=== PATIENT | female | born 1985 | race Two or more races ===

== ENCOUNTER 2024-11-18 16:52 | Emergency (ER) | payer MEDICAID, SELFPAY ==
[2024-11-18 17:30] VITALS: BP 159/92; PULSE 70; RESP 18; TEMP 37.5; O2SAT 98; BMI 41.8
--- NOTE | 2024-11-18 17:38 | PD.EDRME ---
Rapid Medical Screening Exam RME Arrival date/time: 11/18/24 16:52 This is a 39-year-old female that is currently on her menstrual cycle and complains of lower abdominal pain. Patient states that she feels like her abdomen is swollen. Patient complains of some urinary symptoms. Patient denies any past medical history. I have greeted and performed a focused initial assessment of this patient. Initial appropriate labs ordered at this time. A comprehensive ED assessment and evaluation of the patient and analysis of all test and completion of medical decision making process will be conducted by additional ED provider. Chief Complaint: Abdominal Pain Time Seen by Provider: 11/18/24 17:23 Vital signs: Vital Signs Temperature 99.5 F 11/18/24 17:30 Pulse Rate 70 11/18/24 17:30 Respiratory Rate 18 11/18/24 17:30 Blood Pressure 159/92 H 11/18/24 17:30 Pulse Oximetry (%) 98 11/18/24 17:30 Oxygen Delivery Method Room Air 11/18/24 17:30
[2024-11-18 18:20] LABS: Basophils # (Auto) 0.1 Thou/mm3 (0.0-0.2); Basophils % (Auto) 0 % (0-2.5); Eosinophils # (Auto) 0.3 Thou/mm3 (0.0-0.5); Eosinophils % (Auto) 3 % (0-10); Hematocrit 41.4 % (36.0-46.0); Hemoglobin 13.8 g/dL (12.0-16.0); Immature Granulocytes % (Auto) 0 % (0-0); Immature Granulocytes Auto 0.02 Thou/mm3 (0.00-0.00); Lymphocytes # (Auto) 3.6 Thou/mm3 (1.0-4.8); Lymphocytes % (Auto) 31 % (10-50); Mean Corpuscular HGB Conc 33.3 g/dl (31.0-37.0); Mean Corpuscular Hemoglobin 30.6 pg (25.0-35.0); Mean Corpuscular Volume 92 fL (80-100); Monocytes # (Auto) 0.7 Thou/mm3 (0.0-0.8); Monocytes % (Auto) 6 % (0-12); Neutrophils # (Auto) 6.7 Thou/mm3 (1.8-7.7); Neutrophils % (Auto) 59 % (37-80); Nucleated Red Blood Cell % 0 /100 WBC (0); Platelet Count 280 Thou/mm3 (140-440); RDW Standard Deviation 43.3 fL (36.4-46.3); Red Blood Count 4.51 Miln/mm3 (4.00-5.20); White Blood Count 11.3 Thou/mm3 (3.6-11.0)
[2024-11-18 18:48] LABS: Alanine Aminotransferase 9 U/L (10-49); Albumin/Globulin Ratio 1.5 (1.2-2.2); Alkaline Phosphatase 80 U/L (46-116); Anion Gap 5 (7-16); Aspartate Amino Transferase 13 U/L (0-34); BUN/Creatinine Ratio 14 Ratio (12-20); Bilirubin,Total 0.3 mg/dL (0.3-1.2); Blood Urea Nitrogen 11 mg/dL (9-23); Carbon Dioxide 26.9 mMol/L (20.0-31.0); Chloride 109 mMol/L (98-107); Creatinine (Component) 0.8 mg/dL (0.6-1.3); Estimated Creatinine Clearance 138.4 mL/min (>60); Globulin 2.7 gm/dL (2.3-3.5); Glucose 96 mg/dL (74-106); Lipase 60 U/L (12-53); Osmolality,Calculated 280 (275-295); Sodium 141 mMol/L (136-145); Total Protein 6.7 gm/dL (5.7-8.2); eGFR > 60 See Note
[2024-11-18 19:15] LABS: Collection Type, Urine Voided; WBC,Urine 0 /hpf (0-5)
[2024-11-18 19:32] LABS: Bilirubin,Urine Negative (Negative); Blood,Urine 3+ (Negative); Clarity,Urine Turbid (Clear/Hazy); Color,Urine Colorless (Lt Yel-Yel); Culture Indicated,Urine Not Indicated; Glucose, Urine Negative (Negative); Ketones,Urine Negative (Negative); Leukocyte Esterase,Urine Negative (Negative); Nitrite,Urine Negative (Negative); PH,Urine 5.5 (5.0-7.0); Protein,Urine Trace (Neg - Trace); RBC,Urine 1186 /hpf (0-3); Specific Gravity,Urine 1.016 (1.001-1.035); Squamous Epithelial Cell,Urine 1 /hpf (0-5); Urobilinogen,Urine Negative mg/dL (0.0-1.0)
--- NOTE | 2024-11-18 19:37 | XR_ITS ---
Examination: CT abdomen and pelvis without contrast. Coronal 3-D reconstructions. Sagittal 2-D reconstructions. Date and time of exam:November 18, 2024 0847 hrs. Indications: Bilateral lower abdominal pain and flank pain beginning 2 weeks ago CTDI: vol (mGy): 18.6 DLP: (mGycm): 1112 Technique: Axial images of the abdomen have been obtained, 3 mm slice thickness Intravenous contrast material has not been administered. Low dose protocols were performed. One or more of the following dose reduction techniques were used; automated exposure control, adjustment of the mA and/or KV according to patient size, use of iterative reconstruction technique. Findings: No focal liver or splenic lesions Contracted gallbladder No pancreatic mass Bilateral fat-containing adrenal nodules, 30 mm on the left 14 mm on the right Aorta normal size No renal or ureteral calculi, no hydronephrosis 8mm fat-containing umbilical hernia No pericecal inflammatory change Colonic diverticulosis, no diverticulitis No pelvic mass Urinary bladder intact Impression: No renal or ureteral calculi, no hydronephrosis Bilateral benign appearing fat-containing adrenal nodules No CT findings of appendicitis bowel obstruction or diverticulitis
[2024-11-18 20:19] LABS: HCG,Qualitative Serum Negative
[2024-11-18 21:27] LABS: Amphetamine/Methamp Scrn,U Negative (Negative); Barbiturate Screen,Urine Negative (Negative); Benzodiazepines Screen,Urine Negative (Negative); Benzoylecgonine Screen, Ur Negative (Negative); Fentanyl Screen,Urine Negative (Negative); Opiate Screen,Urine Negative (Negative); THC Screen,Urine Positive (Negative)
--- NOTE | 2024-11-19 04:28 | PD.EDABDPN ---
ED Abdominal Pain RME/HPI General Chief Complaint: Abdominal Pain Stated complaint: ABD PAIN X FEW WEEKS Time seen by provider: 11/18/24 17:23 Arrival date/time: 11/18/24 16:52 RME / HPI RME / HPI narrative: 11/18/24 16:52 This is a 39-year-old female that is currently on her menstrual cycle and complains of lower abdominal pain. Patient states that she feels like her abdomen is swollen. Patient complains of some urinary symptoms. Patient denies any past medical history. I have greeted and performed a focused initial assessment of this patient. Initial appropriate labs ordered at this time. A comprehensive ED assessment and evaluation of the patient and analysis of all test and completion of medical decision making process will be conducted by additional ED provider. This section includes all my notes and documentations, including HPI, PE, and ED course. Manjit Peck MD HPI: 39-year-old female here to be evaluated with abdominal pain since falling 1-2 weeks ago at work. She has trouble localizing her pain. No nausea or vomiting. No fever or chills. Eating normally. No urinary symptoms. No other complaints. ROS: All negative except as documented in HPI. Physical Exam: General: Alert and oriented. No acute distress when remaining still. Eyes: Conjunctivae and lids clear. ENT: No nasal congestion. Neck: Supple. Heart: RRR. Lungs: No respiratory distress. Good air movement. No rhonchi, wheezing, rales. Abdomen: Soft with equivocal tenderness, difficult to localize. Normal bowel sounds. No distension. No rebound or guarding. Back: No CVA tenderness. Skin: Warm and dry. Neuro: Alert and oriented X 3. I reviewed all diagnostic test results. My review of the abdominal CT report is no acute findings. Blood tests and urine tests unremarkable. At this point, diagnoses include abdominal wall pain. Recommended supportive care. Based on my best medical judgment, made decision no further evaluation or treatment indicated at this time. Patient understands and agrees to the discharge instructions customized and printed, see below. Discharge Instructions from Dr. Peck printed for you: 1. After extensive evaluation, there is no abdominal emergency such as appendicitis needing urgent surgery. The pain is probably originating from the abdominal wall and not from internal organ, especially with your recent injury. 2. Tylenol with codeine for severe pain. 3. See your doctor on 11/20/2024 for recheck and further care. Ask to review all test results and official radiology reports, to make sure you receive all necessary follow-ups and monitoring. To make sure there is no serious intra-abdominal condition, ask for help with more investigation not available here in the ER. Such as EGD or scoping the stomach, colonoscopy or scoping the colon, and referral to see catalytic converter operator helper. 4. Seek immediate medical care with worsening or with any concerns. Manjit Peck MD Related Data Previous Rx's ?Medication ?Instructions ?Recorded sulfamethoxazole 800 1 tab PO Q12H #20 tabs 10/25/22 mg-trimethoprim 160 mg tablet (Bactrim DS) acetaminophen 300 mg-codeine 30 mg 2 tab PO TID PRN pain #20 tabs 11/18/24 tablet Allergies Allergy/AdvReac Type Severity Reaction Status Date / Time No Known Allergies Allergy Verified 11/18/24 16:56 Course Quality Measures none Orders Category Date Time Status CT abdomen pelvis wo con Stat Exams 11/18/24 19:37 Completed CBC Stat Lab 11/18/24 18:08 Completed Comprehensive Metabolic Panel Stat Lab 11/18/24 18:08 Completed Drug Screen,Urine Stat Lab 11/18/24 18:38 Completed HCG,Qualitative Serum Stat Lab 11/18/24 18:08 Completed Lipase Stat Lab 11/18/24 18:08 Completed Urinalysis, C/S if Indicated Stat Lab 11/18/24 18:38 Completed Vital Signs Vital signs: Vital Signs Temperature 99.5 F 11/18/24 17:30 Pulse Rate 70 11/18/24 17:30 Respiratory Rate 18 11/18/24 17:30 Blood Pressure 159/92 H 11/18/24 17:30 Pulse Oximetry (%) 98 11/18/24 17:30 Oxygen Delivery Method Room Air 11/18/24 17:30 Abdominal Pain MDM Patient data External records reviewed:: [facility] previous records Clinical information provided by:: patient Social determinants that could affect healthcare access:: none Patient has the following chronic illnesses:: None How is presenting disease/condition affected by chronic disease/condition?: no chronic disease Evaluation data The following diagnostics were reviewed and interpreted by me:: lab results and radiology exam(s) Lab and/or radiology exams considered but not ordered:: None Interpretation Summary: Normal diagnostics Medications / Prescriptions Medications or Prescriptions considered but not ordered:: None Medication administrations:: None Consultations Consultation(s) initiated? (list below): No Diagnosis Differential diagnosis abdominal pain: abdominal pain, acute appendicitis, calculus of kidney, constipation, diverticulitis, endometriosis, gastroenteritis, pancreatitis and small bowel obstruction Most likely diagnosis given after review of the tests above:: Abdominal wall pain Admission Indicated Admission indicated?: not indicated Explain why admission is indicated or not indicated:: No criteria for admission Admission Request Was there a request for admission?: No Disposition Plan Disposition Plan: other (specify) Discharge Plan Plan Patient Disposition: HOME (Self Care) Prescriptions/Referrals Prescriptions/Med Rec: New acetaminophen-codeine 300-30 mg tablet 2 tab PO TID MDD 6 PRN (Reason: pain) Qty: 20 0RF No Action sulfamethoxazole-trimethoprim [Bactrim DS] 800-160 mg tablet 1 tab PO Q12H Qty: 20 0RF Referrals: Danny Tony PA-C [Primary Care Provider] - In 1 week Problem List Clinical Impression: Abdominal wall pain Patient/Caregiver Discharge Instructions Discharge Activity: activity as tolerated Education Materials: ED Abdominal Pain Unkn Cause Fem Additional Instructions: Discharge Instructions from Dr. Peck printed for you: 1. After extensive evaluation, there is no abdominal emergency such as appendicitis needing urgent surgery. The pain is probably originating from the abdominal wall and not from internal organ, especially with your recent injury. 2. Tylenol with codeine for severe pain. 3. See your doctor on 11/20/2024 for recheck and further care. Ask to review all test results and official radiology reports, to make sure you receive all necessary follow-ups and monitoring. To make sure there is no serious intra-abdominal condition, ask for help with more investigation not available here in the ER. Such as EGD or scoping the stomach, colonoscopy or scoping the colon, and referral to see catalytic converter operator helper. 4. Seek immediate medical care with worsening or with any concerns. Print Language: Belgian Stand Alone Forms: Gabriella Award Info., Patient Portal Info Letter
== END 2024-11-18 22:16 | disposition home or self-care (01) ==
PROVIDERS: Nurse Practitioner Family; Emergency Provider Emergency Medicine; PCP Family Medicine
DX: R10.30 Lower abdominal pain, unspecified (principal)
CPT/HCPCS: 36415; 74176; 80053; 80307; 81001; 81025; 83690; 84703; 85025; 99284

== ENCOUNTER 2025-08-01 11:23 | Emergency (ER) | payer MEDICAID, SELFPAY ==
[2025-08-01 11:24] VITALS: BMI 43.5
[2025-08-01 11:43] VITALS: BP 130/86; PULSE 87; RESP 18; TEMP 36.9; O2SAT 98
--- NOTE | 2025-08-01 11:50 | PD.EDADULT ---
ED General RME/HPI General Chief complaint: General Adult/Misc Complain Stated complaint: GENERALIZED SWELLING W/ NEAR SYNCOPE Time Seen by Provider: 08/01/25 12:10 Arrival date/time: 08/01/25 11:23 RME / HPI RME / HPI narrative: 40-year-old female patient presents emergency department with complaint of waking up this morning with bilateral arm swelling with numbness and tingling. Patient reports a history of renal calculus and fibroid in the abdomen she also mentions that she has pain to the left side radiating to her right side. She denies vaginal bleeding she denies nausea or vomiting. She states she currently takes baclofen, Topamax, Zofran and a mood stabilizer Rexulti. Related Data Previous Rx's ?Medication ?Instructions ?Recorded sulfamethoxazole 800 1 tab PO Q12H #20 tabs 10/25/22 mg-trimethoprim 160 mg tablet (Bactrim DS) acetaminophen 300 mg-codeine 30 mg 2 tab PO TID PRN pain #20 tabs 11/18/24 tablet ibuprofen 600 mg tablet 600 mg PO QID PRN pain #20 tabs 08/01/25 nitrofurantoin 100 mg PO Q12H 3 days #6 caps 08/01/25 monohydrate/macrocrystals 100 mg capsule (Macrobid) Allergies Allergy/AdvReac Type Severity Reaction Status Date / Time No Known Allergies Allergy Verified 08/01/25 11:27 Review of Systems Review of Systems Systems Reviewed: All systems reviewed, normal except as documented Constitutional Constitutional: Reports system reviewed and no additional complaints, except as documented ENT Ears, Nose, Mouth, and Throat: Reports system reviewed and no additional complaints, except as documented Cardiovascular Cardiovascular: Reports system reviewed and no additional complaints, except as documented Gastrointestinal Gastrointestinal: Reports system reviewed and no additional complaints, except as documented Neurologic Neurologic: Reports system reviewed and no additional complaints, except as documented ED Exam General General appearance: Present alert and in no apparent distress Head Head exam: Present atraumatic and normocephalic Eye Eye exam: Present normal appearance and PERRL ENT ENT exam: Present normal exam and normal oropharynx Neck Neck exam: Present normal inspection and full ROM Chest Chest inspection: Present normal inspection and symmetric chest wall rise Respiratory Respiratory exam: Present normal lung sounds bilaterally and respiratory distress Cardiovascular Cardiovascular exam: Present regular rate and normal rhythm Neurological Exam Neurological exam: Present alert and oriented X3 Course Quality Measures VTE prophylaxis Orders Category Date Time Status CBC [CBC] Stat Lab 08/01/25 12:23 Completed CMP [Comprehensive Metabolic Panel] Stat Lab 08/01/25 12:23 Completed HCG Qualitative,Urine Stat Lab 08/01/25 12:40 Completed Lipase Stat Lab 08/01/25 12:23 Completed Urinalysis, C/S if Indicated Stat Lab 08/01/25 12:40 Completed Ibuprofen Tab [Motrin Tab] Med 08/01/25 11:53 Discontinued 800 mg PO X1 ONE LORazepam [Ativan] Med 08/01/25 11:53 Discontinued 1 mg PO X1 ONE predniSONE Med 08/01/25 11:53 Discontinued 40 mg PO X1 ONE Vital Signs Vital signs: Vital Signs Temperature 98.5 F 08/01/25 11:43 Pulse Rate 87 08/01/25 11:43 Respiratory Rate 18 08/01/25 11:43 Blood Pressure 130/86 H 08/01/25 11:43 Pulse Oximetry (%) 98 08/01/25 11:43 Oxygen Delivery Method Room Air 08/01/25 11:43 Discharge Plan Plan Patient Disposition: HOME (Self Care) Prescriptions/Referrals Prescriptions/Med Rec: New nitrofurantoin monohyd/m-cryst [Macrobid] 100 mg capsule 100 mg PO Q12H 3 Days Qty: 6 0RF Rx Instructions: must administer with a meal/food ibuprofen 600 mg tablet 600 mg PO QID PRN (Reason: pain) Qty: 20 0RF No Action sulfamethoxazole-trimethoprim [Bactrim DS] 800-160 mg tablet 1 tab PO Q12H Qty: 20 0RF acetaminophen-codeine 300-30 mg tablet 2 tab PO TID MDD 6 PRN (Reason: pain) Qty: 20 0RF Referrals: Mike Smith MD [Primary Care Provider, Family Practice] - In 1 week Problem List Clinical Impression: UTI (urinary tract infection), Bilateral hand swelling, Paresthesia Patient/Caregiver Discharge Instructions Education Materials: Urinary Tract Infections in Women, ED CYSTITIS Female Adult Print Language: Malagasy Stand Alone Forms: Gabriella Award Info., Patient Portal Info Letter MDM Meds/Rx considered, not ordered describe: Antibiotic will be ordered for the patient Labs/Rad/Tests considered, not ordered Describe: Labs unremarkable except UA which indicates UTI Medication Administration(s) Medication Administration History Discontinued Medications Ibuprofen (Ibuprofen Tab 400 Mg Tablet) 800 mg PO X1 ONE Stop: 08/01/25 11:54 Last Admin: 08/01/25 12:32 Dose: 800 mg Documented By: Lorazepam (Lorazepam 0.5 Mg Tablet) 1 mg PO X1 ONE Stop: 08/01/25 11:54 Last Admin: 08/01/25 12:32 Dose: 1 mg Documented By: Prednisone (Prednisone 20 Mg Tablet) 40 mg PO X1 ONE Stop: 08/01/25 11:54 Last Admin: 08/01/25 12:32 Dose: 40 mg Documented By:
[2025-08-01] MEDS: IBUPROFEN TAB 400 MG TABLET 800 MG PO (12:32)
[2025-08-01 12:34] LABS: Basophils # (Auto) 0.0 Thou/mm3 (0.0-0.2); Basophils % (Auto) 0 % (0-2.5); Eosinophils # (Auto) 0.1 Thou/mm3 (0.0-0.5); Eosinophils % (Auto) 2 % (0-10); Hematocrit 44.2 % (36.0-46.0); Hemoglobin 14.6 g/dL (12.0-16.0); Immature Granulocytes Auto 0.02 Thou/mm3 (0.00-0.00); Lymphocytes # (Auto) 1.4 Thou/mm3 (1.0-4.8); Lymphocytes % (Auto) 18 % (10-50); Mean Corpuscular HGB Conc 33.0 g/dl (31.0-37.0); Mean Corpuscular Hemoglobin 30.3 pg (25.0-35.0); Mean Corpuscular Volume 92 fL (80-100); Monocytes # (Auto) 0.2 Thou/mm3 (0.0-0.8); Monocytes % (Auto) 3 % (0-12); Neutrophils # (Auto) 6.2 Thou/mm3 (1.8-7.7); Neutrophils % (Auto) 77 % (37-80); Nucleated Red Blood Cell # 0.00 Thou/mm3 (0.00-0.00); Nucleated Red Blood Cell % 0 /100 WBC (0); Platelet Count 242 Thou/mm3 (140-440); RDW Standard Deviation 43.8 fL (36.4-46.3); Red Blood Count 4.82 Miln/mm3 (4.00-5.20); White Blood Count 8.1 Thou/mm3 (3.6-11.0)
[2025-08-01 12:53] LABS: Collection Type, Urine Voided
[2025-08-01 12:55] LABS: Alanine Aminotransferase 10 U/L (10-49); Albumin, Serum 3.8 gm/dL (3.5-5.0); Albumin/Globulin Ratio 2.2 (1.2-2.2); Alkaline Phosphatase 53 U/L (46-116); Anion Gap 9 (7-16); Aspartate Amino Transferase 14 U/L (0-34); BUN/Creatinine Ratio 13 Ratio (12-20); Bilirubin,Total 0.5 mg/dL (0.3-1.2); Blood Urea Nitrogen 16 mg/dL (9-23); Calcium 8.3 mg/dL (8.3-10.6); Calcium (Corrected) 8.5 mg/dL (8.5-10.1); Carbon Dioxide 26.3 mMol/L (20.0-31.0); Chloride 107 mMol/L (98-107); Creatinine (Component) 1.2 mg/dL (0.6-1.3); Estimated Creatinine Clearance 84.9 mL/min (>60); Globulin 1.7 gm/dL (2.3-3.5); Glucose 82 mg/dL (74-106); Lipase 63 U/L (12-53); Osmolality,Calculated 283 (275-295); Potassium 3.6 mMol/L (3.4-5.1); Sodium 142 mMol/L (136-145); Total Protein 5.5 gm/dL (5.7-8.2); eGFR 59 See Note
[2025-08-01 12:59] LABS: Bilirubin,Urine 1+ (Negative); Blood,Urine Negative (Negative); Clarity,Urine Turbid (Clear/Hazy); Color,Urine Yellow (Lt Yel-Yel); Culture Indicated,Urine Not Indicated; Glucose, Urine Negative (Negative); Ketones,Urine Trace (Negative); Leukocyte Esterase,Urine Positive (Negative); Nitrite,Urine Negative (Negative); PH,Urine 6.0 (5.0-7.0); Protein,Urine 1+ (Neg - Trace); RBC,Urine 8 /hpf (0-3); Specific Gravity,Urine 1.038 (1.001-1.035); Squamous Epithelial Cell,Urine 5 /hpf (0-5); Urobilinogen,Urine 3.0 mg/dL (0.0-1.0); WBC,Urine 9 /hpf (0-5)
[2025-08-01 14:19] LABS: Hyaline Casts,Urine < 1 /hpf (0-1)
[2025-08-01 14:33] LABS: HCG Qualitative,Urine Negative
== END 2025-08-01 16:09 | disposition home or self-care (01) ==
PROVIDERS: Physician Assistant; Emergency Provider Emergency Medicine; PCP Family Medicine
DX: N30.90 Cystitis, unspecified without hematuria (principal)
CPT/HCPCS: 36415; 80053; 81001; 81025; 83690; 85025; 99282; J7512; A9270

== ENCOUNTER 2025-08-18 08:24 | Emergency (ER) | payer MEDICAID, SELFPAY ==
[2025-08-18 08:30] VITALS: BMI 46.2
--- NOTE | 2025-08-18 08:40 | EKG_ITS ---
[facility] Test Date: 2025-08-18 Pat Name: ROGER LEHMAN Department: Room: - Gender: Female Engineering Group Manager: : 1985 Requested By: Jewel Lopez Order Number: [id number] Reading MD: Jewel Lopez Measurements Intervals [place] Rate: 63 P: 51 PA: 158 QRS: 60 QRSD: 101 T: 36 QT: 414 QTc: 426 Interpretive Statements SINUS RHYTHM Compared to ECG 10/07/2021 08:43:58 No significant changes /store/S0/[id number].pdf
[2025-08-18 08:43] VITALS: BP 125/98; RESP 20; TEMP 36.6; O2SAT 98
[2025-08-18 08:46] VITALS: PULSE 72; PULSE 79; RESP 18; O2SAT 97
[2025-08-18] MEDS: FAMOTIDINE INJ 10 MG/ML VIAL 2 ML 20 MG IVP (08:52)
[2025-08-18] MEDS: MethylPREDNISolone SOD SUCC 62.5 MG/ML 2ML VIAL 125 MG IVP (08:53)
--- NOTE | 2025-08-18 09:18 | PC.NURSE ---
triny states she only took naproxen and doxycyclin this morning and started experiencing rash and numbness and tingling to face, patient was noted to have redness to face as well as swelling, also had rash through out different sites of the body, states she felt numbness as well through out her body , was short of breath,
--- NOTE | 2025-08-18 09:30 | EDNOTE_ITS ---
ED Allergic Reaction RME/HPI General Chief complaint: Allergic Reaction Stated complaint: ALLERGIC REACTION TO MEDS X 5 MINS AGO Time Seen by Provider: 08/18/25 08:37 Arrival date/time: 08/18/25 08:24 Limitations: no limitations RME / HPI RME / HPI narrative: DR. FUNG MAIN ED EVALUATION: 40-year-old female with history of hypercholesterolemia and hypertension presents to the Emergency Department with complaint of an allergic reaction. Patient reports facial swelling and redness that began after taking her routine medications. She states she took four medications: naproxen which she takes r egularly for a year, cyclobenzaprine which she has taken for a year, doxycycline started one week ago for large abscesses, and ciprofloxacin prescribed for bacteria in stool. No tongue swelling, no shortness of breath, and no difficulty swallowing reported. Related Data Previous Rx's ?Medication ?Instructions ?Recorded sulfamethoxazole 800 1 tab PO Q12H #20 tabs 10/25 mg-trimethoprim 160 mg tablet (Bactrim DS) acetaminophen 300 mg-codeine 30 mg 2 tab PO TID PRN pa in #20 tabs 11/18/24 tablet ibuprofen 600 mg tablet 600 mg PO QID PRN pain #20 t abs 08/01/25 famotidine 40 mg tablet (Pepcid) 40 mg PO QDAY ALLERGI C REACTION 08/18/25 #10 tabs prednisone 20 mg tablet See Taper PO QDAY allergic 1 10/18/24 reaction #18 tabs Allergies Allergy/AdvReac Type Severity Reaction Status Date / Time No Known Allergies Allergy Verified 08/01/25 11:27 Review of Systems Review of Systems Systems Reviewed: All systems reviewed, normal except as documented ED Exam General Limitations: Present no limitations General appearance: Present alert and in no apparent distress Head Head exam: Present atraumatic, normocephalic and other (facial edema and erythema present) Eye Eye exam: Present normal appearance, PERRL and EOMI ENT ENT exam: Present normal exam, normal oropharynx, mucous membranes moist and other (tongue without edema, airway patent) Neck Neck exam: Present normal inspection, full ROM and trachea midline Chest Chest inspection: Present normal inspection and symmetric chest wall rise Respiratory Respiratory exam: Present normal lung sounds bilaterally Cardiovascular Cardiovascular exam: Present regular rate, normal rhythm and normal heart sounds Abdominal Exam Abdominal exam: Present soft and normal bowel sounds Extremities Exam Extremities exam: Present normal inspection and full ROM Back Exam Back exam: Present normal inspection and full ROM Neurological Exam Neurological exam: Present alert, oriented X3 and CN II-XII intact Psychiatric Psychiatric exam: Present normal affect and normal mood Skin Skin exam: Present warm, dry, intact and other (facial erythema and swelling noted) Course Quality Measures none Orders Category Date Time Status Director Of Resource Development NOW Care 08/18/25 08:40 Active Continuous Pulse Oximetry NOW Care 08/18/25 08:40 Completed EKG (ED ONLY) *Do not use* NOW Care 08/18/25 08:40 Completed Insert IV NOW Care 08/18/25 08:40 Active EKG (ED Only) Stat Exams 08/18/25 08:40 Draft CBC Stat Lab 08/18/25 09:18 Completed Comprehensive Metabolic Panel Stat Lab 08/18/25 09:18 Completed DiphenhydrAMINE INJ [Benadryl Inj] Med 08/18/25 08:38 Discontinued 25 mg IVP X1 ONE DiphenhydrAMINE INJ [Benadryl Inj] Med 08/18/25 08:36 Discontinued 50 mg .ROUTE .STK-MED ONE Famotidine Inj [Pepcid Inj] Med 08/18/25 08:36 Discontinued 20 mg .ROUTE .STK-MED ONE Famotidine Inj [Pepcid Inj] Med 08/18/25 08:38 Discontinued 20 mg IVP X1 ONE MethylPREDNISolone.* [SoluMEDROL Inj] Med 08/18/25 08:36 Discontinued 125 mg .ROUTE .STK-MED ONE MethylPREDNISolone.* [SoluMEDROL Inj] Med 08/18/25 08:38 Discontinued 125 mg IVP X1 ONE Oxygen Delivery NOW RT 08/18/25 08:40 Active Vital Signs Vital signs: Vital Signs Temperature 97.8 F 08/18/25 08:43 Respiratory Rate 20 08/18/25 08:43 Blood Pressure 125/98 H 08/18/25 08:43 Pulse Oximetry (%) 98 08/18/25 08:43 Oxygen Delivery Method Room Air 08/18/25 08:43 Allergic Reaction MDM Narrative MDM Narrative:: I, Daniela Gonzalez, david scribing for and in the presence of Dr. Fung. 40-year-old female with facial swelling and erythema after taking multiple medications. Airway patent and symptoms consistent with allergic reaction. Treated in ED with improvement. Differential diagnoses include medication reaction, angioedema, and allergic dermatitis. 1013: Patient improved and will discharge with an allergic reaction. Patient data External records reviewed:: [facility] previous records Clinical information provided by:: patient Social determinants that could affect healthcare access:: none Patient has the following chronic illnesses:: Hypercholesterolemia and hypertension. She states she took four medications: naproxen which she takes regularly for a year, cyclobenzaprine which she has taken for a year, doxycycline started one week ago for large abscesses, and ciprofloxacin prescribed for bacteria in stool. How is presenting disease/condition affected by chronic disease/condition?: exacerbated by Evaluation data The following diagnostics were reviewed and interpreted by me:: lab results and EKG tracing(s) Lab and/or radiology exams considered but not ordered:: none Interpretation Summary: My interpretation: EKG performed at 0858 hours, sinus rhythm, rate 63, no acute changes, no STEMI See MDM narrative above. Medications / Prescriptions Medications or Prescriptions considered but not ordered:: none Medication administrations:: Medication Administration History Discontinued Medications Diphenhydramine HCl (Diphenhydramine Inj 50 Mg/Ml Vial) 25 mg IVP X1 ONE Stop: 08/18/25 08:39 Last Admin: 08/18/25 08:48 Dose: 25 mg Documented By: BY Diphenhydramine HCl (Diphenhydramine Inj 50 Mg/Ml Vial) Confirm Administered Dose 50 mg .ROUTE .STK-MED ONE Stop: 08/18/25 08:37 Last Admin: 08/18/25 08:53 Dose: Not Given Documented By: BY Non-Admin Reason: Discontinued Famotidine (Famotidine Inj 10 Mg/Ml Vial 2 Ml) 20 mg IVP X1 ONE Stop: 08/18/25 08:39 Last Admin: 08/18/25 08:52 Dose: 20 mg Documented By: BY Famotidine (Famotidine Inj 10 Mg/Ml Vial 2 Ml) Confirm Administered Dose 20 mg .ROUTE .STK-MED ONE Stop: 08/18/25 08:37 Last Admin: 08/18/25 08:53 Dose: Not Given Documented By: BY Non-Admin Reason: Discontinued Methylprednisolone Sodium Succinate (Methylprednisolone Sod Succ 62.5 Mg/Ml 2ml Vial) 125 mg IVP X1 ONE Stop: 08/18/25 08:39 Last Admin: 11/15/25 08:53 Dose: 125 mg Documented By: BY Methylprednisolone Sodium Succinate (Methylprednisolone Sod Succ 62.5 Mg/Ml 2ml Vial) Confirm Administered Dose 125 mg .ROUTE .STK-MED ONE Stop: 08/18/25 08:37 Last Admin: 08/18/25 08:53 Dose: Not Given Documented By: BY Non-Admin Reason: Discontinued see above Consultations Consultation(s) initiated? (list below): No Diagnosis Differential Diagnosis allergic reaction: other (medication reaction, angioedema, and allergic dermatitis) Most likely diagnosis given after review of the tests above:: Allergic reaction Admission Indicated Admission indicated?: not indicated Admission Request Was there a request for admission?: No Disposition Plan Disposition Plan: Discharge Discharge Attestation Discharge Attestation: The patient and all family members were given an opportunity to ask questions and understood the discharge instructions. Discharge instructions specifically effects, indications for sooner follow up or return to the emergency department, and the expected course of current diagnosis. Patient condition: Stable Discharge Plan Plan Patient Disposition: HOME (Self Care) Patient condition on transfer: Stable Prescriptions/Referrals Prescriptions/Med Rec: New prednisone 20 mg tablet See Taper PO QDAY MDD 3 Qty: 18 0RF Taper: Prednisone Taper 20 mg DAILY for 2 Days and 0 Hour Rx Instructions: Take 3 Tabs q Day for 3 days then take 2 tabs q Day for 3 days then take 1 tablet q Day for 3 days then D/C #18 famotidine [Pepcid] 40 mg tablet 40 mg PO QDAY MDD 1 Qty: 10 0RF No Action ibuprofen 600 mg tablet 600 mg PO QID PRN (Reason: pain) Qty: 20 0RF sulfamethoxazole-trimethoprim [Bactrim DS] 800-160 mg tablet 1 tab PO Q12H Qty: 20 0RF acetaminophen-codeine 300-30 mg tablet 2 tab PO TID MDD 6 PRN (Reason: pain) Qty: 20 0RF Referrals: No Primary/Family,Physician [Referring Provider] - In 1 week Problem List Clinical Impression: Allergic reaction Patient/Caregiver Discharge Instructions Discharge Activity: activity as tolerated Additional Instructions: Take take medications as directed. Hold your cyclobenzaprine, ciprofloxacin and doxycycline until you speak to your doctor on Wednesday. Print Language: Central African Stand Alone Forms: Gabriella Award Info., Patient Portal Info Letter
[2025-08-18 09:58] LABS: Basophils # (Auto) 0.0 Thou/mm3 (0.0-0.2); Basophils % (Auto) 0 % (0-2.5); Eosinophils # (Auto) 0.1 Thou/mm3 (0.0-0.5); Eosinophils % (Auto) 1 % (0-10); Hematocrit 45.0 % (36.0-46.0); Hemoglobin 14.8 g/dL (12.0-16.0); Immature Granulocytes Auto 0.03 Thou/mm3 (0.00-0.00); Lymphocytes # (Auto) 1.9 Thou/mm3 (1.0-4.8); Lymphocytes % (Auto) 20 % (10-50); Mean Corpuscular HGB Conc 32.9 g/dl (31.0-37.0); Mean Corpuscular Hemoglobin 31.0 pg (25.0-35.0); Mean Corpuscular Volume 94 fL (80-100); Monocytes # (Auto) 0.1 Thou/mm3 (0.0-0.8); Monocytes % (Auto) 1 % (0-12); Neutrophils # (Auto) 7.7 Thou/mm3 (1.8-7.7); Neutrophils % (Auto) 78 % (37-80); Nucleated Red Blood Cell # 0.00 Thou/mm3 (0.00-0.00); Nucleated Red Blood Cell % 0 /100 WBC (0); Platelet Count 274 Thou/mm3 (140-440); RDW Standard Deviation 48.2 fL (36.4-46.3); Red Blood Count 4.78 Miln/mm3 (4.00-5.20); White Blood Count 9.9 Thou/mm3 (3.6-11.0)
[2025-08-18 10:21] LABS: Alanine Aminotransferase 11 U/L (10-49); Albumin, Serum 3.8 gm/dL (3.5-5.0); Albumin/Globulin Ratio 2.0 (1.2-2.2); Alkaline Phosphatase 55 U/L (46-116); Anion Gap 8 (7-16); Aspartate Amino Transferase 14 U/L (0-34); BUN/Creatinine Ratio 10 Ratio (12-20); Bilirubin,Total 0.6 mg/dL (0.3-1.2); Blood Urea Nitrogen 10 mg/dL (9-23); Calcium 8.7 mg/dL (8.3-10.6); Calcium (Corrected) 8.9 mg/dL (8.5-10.1); Carbon Dioxide 24.2 mMol/L (20.0-31.0); Chloride 110 mMol/L (98-107); Creatinine (Component) 1.0 mg/dL (0.6-1.3); Estimated Creatinine Clearance 101.9 mL/min (>60); Globulin 1.9 gm/dL (2.3-3.5); Glucose 144 mg/dL (74-106); Osmolality,Calculated 285 (275-295); Potassium 4.3 mMol/L (3.4-5.1); Sodium 142 mMol/L (136-145); Total Protein 5.7 gm/dL (5.7-8.2); eGFR > 60 See Note
[2025-08-18 10:38] VITALS: BP 140/84; PULSE 77; RESP 18; TEMP 36.7; O2SAT 98
[2025-08-18 10:47] VITALS: BP 148/88; PULSE 72; RESP 16; O2SAT 95
== END 2025-08-18 10:52 | disposition home or self-care (01) ==
PROVIDERS: Emergency Provider Family Medicine; PCP Family Medicine
DX: R22.0 Localized swelling, mass and lump, head (principal); T39.315A Adverse effect of propionic acid derivatives, initial encounter; T48.1X5A Adverse effect of skeletal muscle relaxants [neuromuscular blocking agents], initial encounter; T36.4X5A Adverse effect of tetracyclines, initial encounter; T36.8X5A Adverse effect of other systemic antibiotics, initial encounter
CPT/HCPCS: 36415; 80053; 85025; 93005; 96374; 96375; 99283; J1200; J2919; J3490

== ENCOUNTER → 2025-08-24 | Outpatient (CLI) | payer MEDICAID, SELFPAY ==
[2025-08-23 12:33] LABS: HCG Qualitative,Urine Negative
--- NOTE | 2025-08-24 13:00 | XR_ITS ---
Examination: CT abdomen, without intravenous contrast. CT pelvis, without intravenous contrast. CT abdomen, with intravenous contrast. CT pelvis, with intravenous contrast. 2-D sagittal coronal reconstructions. Date and time of exam: August 24, 2025, 1327 hours, comparison August 18, 2025 INDICATIONS: Intermittent bloody stools 1 year CTDI: vol (mGy) 36 DLP: (mGycm) 2375 Technique: Multiple 3.0 axial images of the abdomen and pelvis without intravenous contrast, 3.0 mm slice thickness. Multiple 3.0 postcontrast images abdomen and pelvis also obtained, post intravenous injection 60 cc [id number] 2-D sagittal and coronal reconstructions. Low dose protocols were performed. One or more of the following dose reduction techniques were used; automated exposure control, adjustment of the mA and/or KV according to patient size, use of iterative reconstruction technique. Findings: No focal liver or splenic lesions No gallstones No pancreatic mass Fat-containing 29 mm left adrenal nodule No renal or ureteral calculi, no hydronephrosis Aorta normal size 4 mm fat-containing umbilical hernia No pericecal inflammatory change Scattered colonic diverticulosis, no diverticulitis Urinary bladder intact Anteverted uterus Suspicious for 15 mm dorsal uterine body mass No rectal wall thickening Advanced disc narrowing L5-S1 IMPRESSION: Fat-containing 29 mm left adrenal adenoma No renal or ureteral calculi, no hydronephrosis Scattered colonic diverticulosis, no diverticulitis No nonspecific enteritis or colitis pattern Recommend pelvic sonography to assess 15 mm uterine body mass
== END | disposition home or self-care (01) ==
PROVIDERS: PCP Family Medicine; Referring Provider Family Medicine; Visit Provider Family Medicine
DX: D35.02 Benign neoplasm of left adrenal gland (principal); K57.30 Diverticulosis of large intestine without perforation or abscess without bleeding; Z32.00 Encounter for pregnancy test, result unknown
CPT/HCPCS: 74178; 81025; A4649; Q9967